=== PATIENT | male | born 1965 | race Hispanic/Latino ===

== ENCOUNTER → 2017-10-15 | Outpatient (CLI) | payer BC ==
[~2017-10-15] MED LIST: KETOROLAC TROME10 MG PO; LEVOTHYROXINE150 MCG PO; LUNESTA3 MG PO; MEDROL4 MG/DOSE- PO; MELOXICAM7.5 MG PO; TRAMADOL HCL50 MG; ULTRAM50 MG PO; Z.0.LEVOTHROID100 MC; Z.0.MOBIC15 MG; Z.0.SIMVASTATIN20 MG PO
[2017-10-15 07:03] LABS: BASOPHILS # (AUTO) 0.1 (0.0-0.1); BASOPHILS % 1.1 % (0.0-1.0); EOSINOPHILS # (AUTO) 1.4 (0.0-0.4); EOSINOPHILS % 20.6 % (0.0-6.0); HEMATOCRIT 43.6 % (38.2-49.6); HEMOGLOBIN 15.1 g/dL (14.0-18.0); LYMPHOCYTES % 29.9 % (18.0-39.1); MEAN CORPUSCULAR HEMOGLOBIN 30.2 pg (28-32); MEAN CORPUSCULAR HGB CONC 34.6 g/dL (31-35); MEAN CORPUSCULAR VOLUME 87.2 fL (81-99); MONOCYTES # (AUTO) 0.5 (0.2-0.8); MONOCYTES % 8.2 % (4.4-11.3); NEUTROPHILS # (AUTO) 2.6 (2.1-6.9); NEUTROPHILS % 39.9 % (38.7-80.0); PLATELET COUNT 286 x10e3/uL (140-360); RED CELL DISTRIBUTION WIDTH 12.7 % (11.7-14.4)
[2017-10-15 07:22] LABS: ALANINE AMINOTRANSFERASE 30 IU/L (0-55); ALBUMIN/GLOBULIN RATIO 1.2 (0.8-2.0); ALKALINE PHOSPHATASE 35 IU/L (40-150); ANION GAP 12.5 mmol/L (8-16); BLOOD UREA NITROGEN 19 mg/dL (7-26); BUN/CREATININE RATIO 24 (6-25); CALCIUM 9.6 mg/dL (8.4-10.2); CARBON DIOXIDE 30 mmol/L (22-29); CHLORIDE 104 mmol/L (98-107); CHOL/HDL RATIO 3.6 (3.9-4.7); CHOLESTEROL 193 MD/DL (0-199); CREATININE, SERUM 0.79 mg/dL (0.72-1.25); EST GLOMERULAR FILTRATION RATE > 60 ML/MIN (60-); GLUCOSE 115 mg/dL (74-118); HDL CHOLESTEROL 54 MG/DL (40-60); LDL CHOLESTEROL 119 MG/DL (60-130); POTASSIUM 4.5 mmol/L (3.5-5.1); SODIUM 142 mmol/L (136-145); TRIGLYCERIDES 100 MG/DL (0-149)
[2017-10-15 07:44] LABS: FREE THYROXINE INDEX 2.3408 (1.4-3.8); THYROID STIMULATING HORMONE 2.462 uIU/mL (0.350-4.940)
== END ==
LOC: LAB 06:38
PROVIDERS: ATTEND Internal Medicine
DX: Z00.01 Encounter for general adult medical examination with abnormal findings (principal); Z12.5 Encounter for screening for malignant neoplasm of prostate; Z12.11 Encounter for screening for malignant neoplasm of colon; K21.9 Gastro-esophageal reflux disease without esophagitis; E03.9 Hypothyroidism, unspecified; E78.00 Pure hypercholesterolemia, unspecified
CPT/HCPCS: 36415; 80053; 80061; 84152; 84436; 84443; 84479; 85025

== ENCOUNTER → 2019-02-12 | Day surgery (SDC) | payer OTHER ==
[~2019-02-12] MED LIST changes: +HYOSCYAMINE 0.125 MG TAB ONE; +PROPOFOL IV EMULSION 10 MG/ML 50 ML VIAL ONE
[2019-02-12 15:41] LABS: ALBUMIN 3.7 g/dL (3.5-5.0); BILIRUBIN,DIRECT 0.2 mg/dL (0.0-0.5)
--- NOTE | 2019-02-12 21:01 | Operative Report ---
DATE OF PROCEDURE: 02/12/2019 SURGEON: Jcarlos De La Paz MD PROCEDURES: EGD with biopsies and colonoscopy. INDICATIONS FOR GED: Dyspepsia. INDICATIONS FOR COLONOSCOPY: Surveillance colonoscopy, personal history of colon polyps, father with colon cancer. MEDICATIONS: The patient was done under MAC. Please see anesthesiologist's note. DESCRIPTION OF PROCEDURE: With the patient in left lateral decubitus position, a flexible fiberoptic Olympus gastroscope was introduced into the esophagus under direct visualization without any difficulty. There was some patchy erythema noted in the distal esophagus. Minute tongues of salmon colored mucosa were noted to extend proximally from the GE junction and biopsies were obtained to rule out Lopez's. The scope was then advanced with ease into the stomach. Mucosa overlying the antrum and the body revealed some patchy erythema. The pylorus was of normal contour and shape. It was intubated with ease and the scope was advanced all the way to the second portion of the duodenum. Biopsies were obtained from the proximal second portion and duodenal bulb to rule out sprue. The scope was then withdrawn back into the stomach and retroflexed. Mucosa overlying the fundus and the cardia appeared to be within normal limits. The scope was then straightened out. It was subsequently withdrawn. The patient tolerated the procedure well. IMPRESSION: 1. Rule out Lopez esophagus. 2. Prominent subepithelial esophageal veins versus grade 1 esophageal varices (not mentioned in the body of the report). 3. Gastritis, mild. 4. Rule out sprue. PLAN: Follow up histology. Initiate Protonix 40 mg one p.o. q.a.m. a.c. Check hepatic panel. DESCRIPTION OF PROCEDURE: The patient was then turned around after adequate lubrication of the anal canal. A flexible fiberoptic Olympus colonoscope was inserted into the rectum with ease and advanced all the way to the cecum. It was then withdrawn slowly. Mucosa overlying the cecum, ascending colon, and transverse colon appeared to be within normal limits. Some minimal diverticulosis was noted in the descending and sigmoid colon. The rectum appeared to be within normal limits. The scope was then retroflexed into the distal rectum and moderate-sized internal hemorrhoids were noted, none of which was actively bleeding. The scope was then straightened out. It was subsequently withdrawn. The patient tolerated the procedure well. IMPRESSION: 1. Diverticulosis, minimal. 2. Internal hemorrhoids, none actively bleeding. PLAN: Initiate high-fiber low-fat diet. Initiate high-fiber supplement. The patient might benefit from a followup colonoscopy in 3 to 5 years. MD KEV Whittington/IRAL /[id number] cc: Saba Fong MD
--- OUTSIDE RECORDS SUMMARY | 2019-02-18 12:00 | XMS REPORT ---
[facility] Address Unknown Phone Unavailable Care Team Providers Care Clinical Research Physician Name Role Phone CELENA MATTHEW Unavailable Unavailable Problems This patient has no known problems. Allergies, Adverse Reactions, Alerts This patient has no known allergies or adverse reactions. Medications This patient has no known medications. Results Test Description Test Time Test Comments Text Results Atomic Results Result Comments SMALL BOWEL SERIES [place] [address] Patient Name: MARC HERRERA MR #: [id number] : 1965 Age/Sex: 51/M Req #: [id number] Adm Physician: Ordered by: CELENA MATTHEW MD Report #: [id number] Location: DX Room/Bed: Procedure: [id number] DX/SMALL BOWEL SERIES Exam Date: 12/05/16 Exam Time: 0930 REPORT STATUS: Signed PROCEDURE: SMALL BOWEL SERIES INDICATION: Gastric ulcers COMPARISON: None. TECHNIQUE: Routine single contrast small bowel follow through performed through 40 minutes. Fluoroscopy time: 0.2 minutes. Cumulative air kerma: 11.02 mGy FINDINGS: Electronic Court Recorder: Normal Small bowel caliber, mucosal contour and transit time is normal. No filling defect, ulcer or other abnormality. CONCLUSION: Normal small bowel follow-through. Dictated by: Mireille Azar M.D. on 12/05/2016 at 11:24 Electronically approved by: Mireille Azar M.D. on 12/05/2016 at 11:24 Dictated By: MIREILLE AZAR MD [id number] Transcribed By: PIETRO on 12/05/16 1124 COPY TO: CELENA MATTHEW MD
== END | disposition home or self-care (01) ==
LOC: OR 09:30
PROVIDERS: ATTEND Internal Medicine Gastroenterology
DX: Z12.11 Encounter for screening for malignant neoplasm of colon (principal); K29.70 Gastritis, unspecified, without bleeding; K20.9 Esophagitis, unspecified; K21.9 Gastro-esophageal reflux disease without esophagitis; K57.30 Diverticulosis of large intestine without perforation or abscess without bleeding; K64.8 Other hemorrhoids; E78.5 Hyperlipidemia, unspecified; E03.9 Hypothyroidism, unspecified; Z01.810 Encounter for preprocedural cardiovascular examination; Z80.0 Family history of malignant neoplasm of digestive organs
CPT/HCPCS: 36415; 43239; 45378; 80076; 93005; J2704